=== PATIENT | male | born 1995 | race African-American/Black ===

== ENCOUNTER 2017-04-23 11:49 | Emergency (ER) | payer OTHER | END 2017-04-23 16:25 | disposition home or self-care (01) | LOC: E/R 11:49 | DX: F13.10 Sedative, hypnotic or anxiolytic abuse, uncomplicated (principal); R40.2142 Coma scale, eyes open, spontaneous, at arrival to emergency department; R40.2252 Coma scale, best verbal response, oriented, at arrival to emergency department; R40.2362 Coma scale, best motor response, obeys commands, at arrival to emergency department | CPT/HCPCS: 70450; 70486; 82962; 99285-25 ==